=== PATIENT | male | born 1940 | race Caucasian/White ===

== ENCOUNTER 2017-04-07 12:24 | Day surgery (SDC) | payer OTHER ==
[~2017-04-07] VITALS: Ht 182.9 cm; Wt 86.2 kg
[~2017-04-07 12:24] MED LIST: ALEVE220 MG PO; ASPIR 8181 M1 PO; CIPRO500 MG PO; FLOMAX0.4 MG PO; GLUCOPHAGE850 MG PO; HYDROCODON-ACE1 EAC8 PO; LIPITOR20 MG PO; METFORMIN HCL500 MG PO; PROPRANOLOL HCL60 M1 PO; VITAMIN D-3 401 EACH PO; VITAMIN D31000 UNI2 PO; VYTORIN 10/21 TABLET PO
[2017-04-07 13:55] LABS: POINT-OF-CARE METER ID UU14174212
== END 2017-04-07 14:25 | disposition home or self-care (01) ==
LOC: PAIN 12:24 → SDC 13:00 → PAIN 14:25
PROVIDERS: Anesthesiology Pain Medicine
DX: M54.16 Radiculopathy, lumbar region (principal); M54.5 Low back pain; G89.29 Other chronic pain; E11.9 Type 2 diabetes mellitus without complications; I10 Essential (primary) hypertension; K21.9 Gastro-esophageal reflux disease without esophagitis; E83.52 Hypercalcemia; E78.5 Hyperlipidemia, unspecified; E66.3 Overweight; Z68.25 Body mass index [BMI] 25.0-25.9, adult; Z79.82 Long term (current) use of aspirin; Z79.84 Long term (current) use of oral hypoglycemic drugs; F17.210 Nicotine dependence, cigarettes, uncomplicated; Z82.49 Family history of ischemic heart disease and other diseases of the circulatory system; Z80.3 Family history of malignant neoplasm of breast; Z80.42 Family history of malignant neoplasm of prostate; F10.21 Alcohol dependence, in remission
CPT/HCPCS: 82948; J1100; J2250; J3010

== ENCOUNTER 2017-05-05 07:26 | Day surgery (SDC) | payer OTHER ==
[~2017-05-05] VITALS: Ht 182.9 cm; Wt 86.2 kg
[2017-05-05 07:56] LABS: POINT-OF-CARE METER ID UU13113694
== END 2017-05-05 09:21 | disposition home or self-care (01) ==
LOC: PAIN 07:26 → SDC 08:00 → PAIN 08:00
PROVIDERS: Anesthesiology Pain Medicine
DX: M47.26 Other spondylosis with radiculopathy, lumbar region (principal); M54.5 Low back pain; G89.29 Other chronic pain; M79.1 Myalgia; M85.80 Other specified disorders of bone density and structure, unspecified site; I10 Essential (primary) hypertension; E11.9 Type 2 diabetes mellitus without complications; N40.0 Benign prostatic hyperplasia without lower urinary tract symptoms; Z79.84 Long term (current) use of oral hypoglycemic drugs; Z79.82 Long term (current) use of aspirin
CPT/HCPCS: 82948; J1100; J3010

== ENCOUNTER 2017-07-21 12:21 | Day surgery (SDC) | payer OTHER ==
[~2017-07-21] VITALS: Ht 182.9 cm; Wt 88.5 kg
[2017-07-21 13:23] LABS: POINT-OF-CARE METER ID UU14174212; POINT-OF-CARE USER ID AHSRSCSLC11
== END 2017-07-21 15:00 | disposition home or self-care (01) ==
LOC: PAIN 12:21 → SDC 13:00 → PAIN 13:00
PROVIDERS: Anesthesiology Pain Medicine
DX: M46.1 Sacroiliitis, not elsewhere classified (principal); M70.71 Other bursitis of hip, right hip; F17.200 Nicotine dependence, unspecified, uncomplicated; I10 Essential (primary) hypertension; E11.9 Type 2 diabetes mellitus without complications; N40.0 Benign prostatic hyperplasia without lower urinary tract symptoms; G25.0 Essential tremor; E78.5 Hyperlipidemia, unspecified; R73.03 Prediabetes; E66.3 Overweight; E55.9 Vitamin D deficiency, unspecified; Z79.82 Long term (current) use of aspirin; Z79.84 Long term (current) use of oral hypoglycemic drugs; Z88.8 Allergy status to other drugs, medicaments and biological substances
CPT/HCPCS: 82948; J1030; J2250; J3010; S0020